=== PATIENT | female | born 1970 | race Two or more races ===

== ENCOUNTER → 2024-05-09 | Outpatient (CLI) | payer MEDICAID, SELFPAY ==
[2024-05-09 11:45] LABS: HCG Qualitative,Urine Negative
[2024-05-09 12:08] LABS: Alanine Aminotransferase 26 U/L (10-49); Albumin, Serum 4.7 gm/dL (3.5-5.0); Albumin/Globulin Ratio 1.9 (1.2-2.2); Alkaline Phosphatase 89 U/L (46-116); Anion Gap 7 (7-16); Aspartate Amino Transferase 20 U/L (0-34); BUN/Creatinine Ratio 21 Ratio (12-20); Blood Urea Nitrogen 15 mg/dL (9-23); Calcium 10.2 mg/dL (8.3-10.6); Calcium (Corrected) 10.2 mg/dL (8.5-10.1); Carbon Dioxide 28.6 mMol/L (20.0-31.0); Chloride 102 mMol/L (98-107); Creatinine (Component) 0.7 mg/dL (0.6-1.3); Globulin 2.5 gm/dL (2.3-3.5); Glucose 200 mg/dL (74-106); Osmolality,Calculated 282 (275-295); Potassium 4.5 mMol/L (3.4-5.1); Sodium 138 mMol/L (136-145); Total Protein 7.2 gm/dL (5.7-8.2); eGFR > 60 See Note
--- NOTE | 2024-05-09 12:30 | XR_ITS ---
Examination: CT chest with intravenous contrast 2-D sagittal and coronal reconstructions Exam date and time: May 09, 2024 1352 hours INDICATIONS: Outside CT chest study pulmonary nodules, coughing pneumonia 2 months CTDI:vol (mGy) 9.58 DLP: (mGycm) 340 Technique: Multiple axial sections of the thorax have been obtained. Sections have been obtained, 3 mm slice thickness. Mediastinal and lung density settings have been obtained. Intravenous contrast administered, 60 cc Isovue-370. 2-D sagittal, coronal images obtained. Low dose protocols were performed. One or more of the following dose reduction techniques were used; automated exposure control, adjustment of the mA and/or KV according to patient size, use of iterative reconstruction technique. Findings: No thoracic aortic aneurysm dilatation No pulmonary artery emboli No paratracheal tracheobronchial or bronchopulmonary adenopathy 2 mm pulmonary nodule right upper lobe image 151 9 mm pulmonary nodule right middle lobe image 170 15 mm pulmonary nodule left lower lobe 5 No pneumonia or pulmonary edema No visualized liver or splenic lesion No gallstones No pancreatic or adrenal mass No hydronephrosis IMPRESSION: Pulmonary nodules as above, differential would include pulmonary nodular metastatic disease
== END | disposition home or self-care (01) ==
LOC: CCTX 11:07 → COPL 12:01
PROVIDERS: Referring Provider Nurse Practitioner Family; Visit Provider Radiology Diagnostic Radiology
DX: R91.1 Solitary pulmonary nodule (principal); Z32.00 Encounter for pregnancy test, result unknown; E11.65 Type 2 diabetes mellitus with hyperglycemia
CPT/HCPCS: 36415; 71260; 80053; 81025; A4649; Q9967

== ENCOUNTER 2024-05-22 07:35 | Outpatient (CLI) | payer MEDICAID, SELFPAY ==
[2024-05-18 13:53] VITALS: BMI 29.2
[2024-05-19 15:10] LABS: Basophils % (Auto) 1 % (0-2.5); Eosinophils # (Auto) 0.2 Thou/mm3 (0.0-0.5); Eosinophils % (Auto) 3 % (0-10); Hematocrit 33.8 % (36.0-46.0); Hemoglobin 10.9 g/dL (12.0-16.0); Immature Granulocytes % (Auto) 0 % (0-0); Immature Granulocytes Auto 0.01 Thou/mm3 (0.00-0.00); Lymphocytes # (Auto) 2.1 Thou/mm3 (1.0-4.8); Lymphocytes % (Auto) 36 % (10-50); Mean Corpuscular HGB Conc 32.2 g/dl (31.0-37.0); Mean Corpuscular Hemoglobin 29.7 pg (25.0-35.0); Mean Corpuscular Volume 92 fL (80-100); Monocytes # (Auto) 0.4 Thou/mm3 (0.0-0.8); Monocytes % (Auto) 6 % (0-12); Neutrophils # (Auto) 3.3 Thou/mm3 (1.8-7.7); Neutrophils % (Auto) 55 % (37-80); Nucleated Red Blood Cell % 0 /100 WBC (0); Platelet Count 289 Thou/mm3 (140-440); RDW Standard Deviation 48.7 fL (36.4-46.3); Red Blood Count 3.67 Miln/mm3 (4.00-5.20)
[2024-05-19 15:19] LABS: Blood Urea Nitrogen < 5 mg/dL (9-23); Creatinine (Component) 0.8 mg/dL (0.6-1.3); Estimated Creatinine Clearance 65.5 mL/min (>60); eGFR > 60 See Note
[2024-05-19 15:43] LABS: Partial Thromboplastin Time 26.4 Seconds (22.0-36.0); Prothrombin Time 10.9 Seconds (9.0-12.2)
[2024-05-22] VITALS (16 sets, daily range): BP systolic 103–164; BP diastolic 68–83; PULSE 65–87; RESP 12–22; TEMP 36.2–37.2; O2SAT 97–100
--- NOTE | 2024-05-22 | XR_ITS ---
Examination: AP chest single view TECHNIQUE: AP semiupright portable chest single view Exam date and time: May 22, 2024 1017 hours INDICATIONS: Post lung biopsy FINDINGS: No pneumothorax post lung biopsy Normal heart size Small nodular densities left lower lobe IMPRESSION: No pneumothorax post lung biopsy
--- NOTE | 2024-05-22 08:30 | XR_ITS ---
Examination: CT chest, without intravenous contrast. Sagittal and coronal 2-D reconstructions. Exam date and time: May 22, 20242050 hours Comparison May 09, 2024 INDICATIONS: History pulmonary nodules on outside CT examination May 09, 2024 CTDI:vol (mGy) 9.86 DLP: (mGycm) 330 Technique: Multiple 3.0 mm axial sections of the chest to been obtained. Bone and lung density settings are obtained. Sagittal and coronal 2-D reconstructions have been obtained. Low dose protocols were performed. One or more of the following dose reduction techniques were used; automated exposure control, adjustment of the mA and/or KV according to patient size, use of iterative reconstruction technique. Findings: No thoracic aneurysm dilatation No pulmonary artery emboli No change in pulmonary nodules both lungs, the largest 15 mm in the left lower lobe No pneumonia or pulmonary edema No liver or splenic lesion IMPRESSION: Bilateral pulmonary nodules, the largest 15 mm in the left lower lobe
--- NOTE | 2024-05-22 09:00 | XR_ITS ---
Examination: CT-guided percutaneous biopsy 15 mm pulmonary nodule left lower lobe CT chest without intravenous contrast Date and time of procedure: May 22, 2024 0906 hours Informed consent provided. A timeout was completed verifying correct patient, procedure, site and positioning. Technique: Axial 3 mm sections were obtained for localization of the left lower lobe pulmonary nodule Appropriate area is marked. The patient's site was prepped and draped in sterile fashion Maximal sterile barrier technique utilized, including hand hygiene Local anesthesia was obtained with 1% lidocaine. Low dose protocols were performed. One or more of the following dose reduction techniques were used; automated exposure control, adjustment of the mA and/or KV according to patient size, use of iterative reconstruction technique. Utilizing CT fluoroscopic guidance for core biopsies obtained of the pulmonary nodule left lower lobe Patient appears in stable condition during this procedure. At completion of the procedure, the patient is in satisfactory condition. Estimated blood loss 0 cc Complete pathology report to follow. Impression: Successful CT-guided percutaneous biopsy pulmonary nodule left lower lobe
[2024-05-22] MEDS: fentaNYL CIT INJ 50 mCg/ML AMP 2ML 75 MCG IVP (09:31)
--- NOTE | 2024-05-22 10:30 | PC.NURSE ---
0954 patient s/p lung bipsy, dressing dry with no bleeding, report given to Soy LARA, patient to have 2 chest xrays in collaborative physician
--- NOTE | 2024-05-22 11:15 | XR_ITS ---
Examination: AP chest single view TECHNIQUE: Sitting AP portable chest single view Exam date and time: May 22, 2024 1132 hours INDICATIONS: Post lung biopsy FINDINGS: No pneumothorax post lung biopsy Normal heart size Small nodular densities left lower lobe IMPRESSION: No pneumothorax post lung biopsy
== END 2024-05-22 12:05 | disposition home or self-care (01) ==
PROVIDERS: Radiology Diagnostic Radiology; PCP Nurse Practitioner Family; Referring Provider Nurse Practitioner Family; Visit Provider Nurse Practitioner Family
DX: R91.8 Other nonspecific abnormal finding of lung field (principal); Z01.812 Encounter for preprocedural laboratory examination
CPT/HCPCS: 32408; 36415; 71250; 77012; 82565; 84520; 85025; 85610; 85730; J3010